=== PATIENT | female | born 1965 ===

== ENCOUNTER 2018-06-09 21:50 | Emergency (ER) | payer SELFPAY ==
[2018-06-09 22:00] VITALS: BP 148/100
[2018-06-09 22:54] LABS: Basophils % (Auto) 0.4 % (0.0-1.8); Eosinophils # (Auto) 0.1 K/mm3 (0.0-0.4); Eosinophils % (Auto) 1.4 % (0.0-4.3); Hematocrit 29.6 % (30.3-42.9); Hemoglobin 9.4 gm/dl (10.1-14.3); Lymphocytes # (Auto) 1.8 K/mm3 (1.2-5.4); Mean Corpuscular HGB Conc 32 % (30-34); Mean Corpuscular Volume 73 fl (79-97); Monocytes # (Auto) 0.7 K/mm3 (0.0-0.8); Platelet Count 432 K/mm3 (140-440); Red Blood Count 4.05 M/mm3 (3.65-5.03); Red Cell Distribution Width 17.5 % (13.2-15.2)
[2018-06-09 22:57] LABS: Mean Corpuscular Hemoglobin 23 pg (28-32)
[2018-06-09 23:11] LABS: Albumin 3.4 g/dL (3.9-5); BUN/Creatinine Ratio 25; Blood Urea Nitrogen 15 mg/dL (7-17); Calcium 9.6 mg/dL (8.4-10.2); Hemolysis Index 0
[2018-06-09 23:35] LABS: Alanine Aminotransferase < 5 units/L (7-56)
[2018-06-09 23:42] LABS: Bacteria,Urine 1+ /HPF (Negative); Bilirubin,Urine NEG (Negative); Blood,Urine MOD (Negative); Mucus,Urine 1+ /HPF
[2018-06-09 23:44] LABS: Color,Urine Yellow (Yellow); WBC,Urine > 182.0 /HPF (0.0-6.0)
[2018-06-10] MEDS ORDERED: MACROBID PO ONE (03:57)
[2018-06-10] MEDS ORDERED: K-DUR PO ONE (03:57)
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
== END 2018-06-10 05:31 | disposition home or self-care (01) ==
LOC: ED 21:50
DX: N39.0 Urinary tract infection, site not specified (principal); I10 Essential (primary) hypertension; E87.6 Hypokalemia; D25.9 Leiomyoma of uterus, unspecified; Z98.51 Tubal ligation status
CPT/HCPCS: 36415; 80053; 81001; 85025; 99283